=== PATIENT | male | born 1975 | race Caucasian/White ===

== ENCOUNTER 2017-10-20 12:51 | Emergency (ER) | payer OTHER, SELFPAY ==
[2017-10-20 12:52] VITALS: BP 126/70; PULSE 70; RESP 18; TEMP 37.4; O2SAT 98; BMI 23.9
[2017-10-20] MEDS: Metoclopramide 10 MG/2 ML Vial IV (15:00)
[2017-10-20] MEDS: 0.9% Normal Saline 1,000 ML 999 ML IV (15:00)
[2017-10-20] MEDS: DiphenhydrAMINE 50 MG/ML Syringe 25 MG IV (15:00)
[2017-10-20] MEDS: Ketorolac 30 MG/ML Syringe IV (15:10)
--- NOTE | 2017-10-20 15:25 | ED.DCSUM_ITS ---
- ER Visit Summary Date of Service: 10/20/17 Chief Complaint: Unilateral throbbing headache History of Present Illness: The patient is a 55 F who presents with a unilateral throbbing headache on the left side this started 2-1/2 days ago. He complains of blurred vision his left eye. He denies ringing in his ears, decreased hearing. He does complain of photophobia and sonophobia. He does complain of nausea without vomiting diarrhea. Denies neck pain or neck stiffness. He denies rash. Denies fever, chills or night sweats. He does report polyuria, polydipsia and frequency. He denies dysuria or hematuria. There is a family history diabetes. He states he had history of migraines when he was younger. He has not had a headache and some time. Review of systems otherwise negative Physical Examination: Vital signs are normal. He is afebrile. Head is atraumatic normocephalic. Pupils are equal round reactive. Extraocular muscles are intact. TMs are pearly white with landmarks noted. Nares patent with no drainage. Posterior pharynx without erythema or exudate. Uvula is midline. There is no dysphonia or dysphasia. Trachea is midline. There is no stridor with auscultation of the neck. Neck is supple with no meningeal findings. Heart is regular without murmur, gallop or rub. S1 and S2 are normal. Lungs are clear to auscultation with good movement of air bilaterally. Abdomen soft nontender bowel sounds present normal. Patient is alert and oriented ?3. Motor is 5 over 5. Sensory is intact. DTRs are symmetric with no clonus or Babinski sign. Cranial 2 through 12 are intact. Cerebellar testing is normal. Test Results: None Emergency Department Course and Treatment: IV was established she received 1 L normal saline wide open. He received 25 mg of Benadryl and 30 Franco grams Toradol followed by 10 mg of Reglan. He was reassessed at 1520. He is watching TV smiling states his headache is resolved. His blurred vision is resolved. Treatment Plan: Discharged home to follow with PCP Dr. Angel Richard Disposition: Discharged home in stable improved condition Impression: Ocular migraine left This note was generated with [employer] dictation software. It may contain incorrect words, spelling, and punctuation that were not noted in review of the chart prior to signing ED Disposition - Plan for ED Patient: Disposition: Home or Assisted Living Chief Complaint: Headache Instructions: ED Headache Migraine Referrals: Aaron Badillo MD [Primary Care Provider] - As Needed
[2017-10-20 15:26] VITALS: BP 114/71; PULSE 53; RESP 14; O2SAT 98
[2017-10-20 15:26] LABS: Bedside Glucose 88 mg/dL (70-110)
== END 2017-10-20 15:37 | disposition home or self-care (01) ==
PROVIDERS: Emergency Provider Emergency Medicine; Family Provider Family Medicine; PCP Family Medicine
DX: G43.909 Migraine, unspecified, not intractable, without status migrainosus (principal); R35.8 Other polyuria; R63.1 Polydipsia
CPT/HCPCS: 82962; 96361; 96374; 96375; 99283; J7030; A4216

== ENCOUNTER 2020-07-20 10:01 | Outpatient (RCR) | payer BC, SELFPAY ==
[2018-06-04 15:13] VITALS: BMI 24.4
== END 2020-09-05 23:59 ==
LOC: IMMUN 10:01
PROVIDERS: PCP Family Medicine; Referring Provider Family Medicine; Visit Provider Family Medicine
DX: Z23 Encounter for immunization (principal)
CPT/HCPCS: 0001A; 0002A; 91300